=== PATIENT | male | born 1970 | race Caucasian/White ===

== ENCOUNTER → 2017-04-20 | Outpatient (CLI) | payer OTHER, MEDICAID | LOC: FLAB 11:27 | PROVIDERS: ATTEND Physician Assistant | DX: R05 Cough (principal); Z87.891 Personal history of nicotine dependence ==

== ENCOUNTER 2017-04-27 21:32 | Emergency (ER) | payer OTHER, MEDICAID ==
[2017-04-27 21:53] VITALS: TEMP 98.4; O2SAT 93
--- NOTE | 2017-04-27 23:22 | EDPHY ---
H & P Time Seen by Provider: 04/27/17 22:40 HPI/ROS: CHIEF COMPLAINT: Right Achilles tendon rupture HISTORY OF PRESENT ILLNESS: 47-year-old male presents to the emergency department with right Achilles tendon rupture. The patient was playing kickball this evening and was pitching and somehow stepped and rolled his ankle and now has pain to the right calf area. He denies any other trauma or injury. He is able to bear weight. ROS: Denies numbness or tingling in his toes, pain in his right knee or hip. Past Medical/Surgical History: Schizoaffective disorder, orthopedic surgery Social History: Single and lives in [place] Smoking Status: Current every day smoker Physical Exam: On examination the patient has no swelling noted to the right ankle. Patient does have palpable deformity in the right Achilles tendon consistent with right Achilles tendon rupture. He is able to dorsi and plantar flex. His right calf is nontender. Nontender to palpate over the medial or lateral malleolus. Nontender to palpate the right foot. Nontender to palpate right knee. Normal sensation to light touch with normal 2 point discrimination. Constitutional: Initial Vital Signs Temperature (C) 36.9 C 04/27/17 21:51 Heart Rate 90 04/27/17 21:51 Respiratory Rate 16 04/27/17 21:51 Blood Pressure 128/82 H 04/27/17 21:51 O2 Sat (%) 93 04/27/17 21:51 O2 Delivery Mode Room Air Allergies/Adverse Reactions: No Known Allergies Allergy (Unverified 04/27/17 21:48) Home Medications: Medication Instructions Recorded Ambien 05/22/14 Depacon 05/22/14 Seroquel 05/22/14 Haldol 04/27/17 Phenocal 04/27/17 MDM/Departure - MDM Procedures: Patient was placed in a Dang boot and examined post application in good placement with normal BEATER LEAD. ED Course/Re-evaluation: Clinically I think this patient has a ruptured Achilles tendon. I do not think imaging studies are indicated. The patient was placed in a Dang boot and given orthopedic referral. He declined crutches. - Depart Disposition: Home, Routine, Self-Care Clinical Impression: Rupture of right Achilles tendon Qualifiers: Encounter type: initial encounter Qualified Code(s): S86.011A - Strain of right Achilles tendon, initial encounter Condition: Good Instructions: Achilles Tendon Rupture (ED) Additional Instructions: Alton linares for comfort and support. Weightbear as tolerated. Follow up with orthopedic surgeon to recheck. Ibuprofen 600 mg every 8 hours as needed for pain. Referrals: Gilmar Marrero MD [Medical Doctor] - 1-2 days without fail (Orthopedic surgeon on-call)
[2017-04-27 23:32] VITALS: BP 123/87; PULSE 91; RESP 18
== END 2017-04-27 23:31 | disposition home or self-care (01) ==
DX: S86.011A Strain of right Achilles tendon, initial encounter (principal); F17.200 Nicotine dependence, unspecified, uncomplicated; X58.XXXA Exposure to other specified factors, initial encounter; Y99.8 Other external cause status; Y93.89 Activity, other specified
CPT/HCPCS: 99282; L4386